=== PATIENT | female | born 1960 | race Caucasian/White ===

== ENCOUNTER 2016-08-30 14:59 | Emergency (ER) | payer MEDICAID ==
[2016-08-30 15:14] VITALS: BP 103/67
[2016-08-30] MEDS ORDERED: HYDROmorphone 1 MG/ML Syringe IM ONE (15:39)
--- NOTE | 2016-08-31 00:05 | ER ---
Date of Service: 08/30/2016 SUBJECTIVE: Joselin presents to the emergency room with complaints of lumbar sacral back pain. The patient states that she was holding a ladder for someone and was looking up and misstepped, falling backwards on to her buttocks/back. She states that she was on the grass when she fell. She does have a history of chronic low back pain and spinal stenosis and has had a referral for evaluation for possible spinal fusion. The patient states that she is not experiencing any paresthesia in her lower extremities and denies any saddle anesthesia or incontinence. PAST MEDICAL HISTORY: 1. Depression. 2. Anxiety. 3. Chronic back pain. 4. Hypertension. 5. Tobacco abuse disorder. MEDICATIONS: 1. Thiamine. 2. Lisinopril 12.5 mg p.o. daily. 3. Prozac 40 mg daily. 4. Klonopin 0.25 mg p.o. daily p.r.n. 5. Aspirin 81 mg daily. ALLERGIES: 1. Statin drugs. 2. Sulfa. REVIEW OF SYSTEMS: General: Denies any saddle anesthesia or paresthesias in her lower extremities. No incontinence. Denies any injury other than was isolated to her lower back. PHYSICAL EXAMINATION: General: This is a 55-year-old female patient, who is in no acute distress. Vital Signs: Blood pressure is 103/67, heart rate is 111, temp is 36.3, respiratory rate 16, O2 saturations 96%. Skin: Warm, pink, and dry. Lungs: Clear to auscultation. Heart: Regular rate and rhythm. Musculoskeletal. The patient does have some muscle spasms to the lumbar sacral region of her lower back. She is noted to have a transdermal back pain, patches in place. No obvious step-offs or deformity noted. No crepitus noted. Neurovascular: Circulation, sensation, and motor function all within normal limits in distal portion of her lower extremities. Her patellar reflexes are 1+. RADIOGRAPHIC DATA: Lumbar spinal x-rays were obtained. No evidence of any acute fracture or subluxation. EMERGENCY ROOM COURSE: The patient was given Dilaudid 1 mg IM. Did report significant improvement in her discomfort. She remained stable under my care in the emergency room. ASSESSMENT: Acute on chronic low back pain. PLAN: The patient will be discharged. Tylenol and ibuprofen for discomfort. I did offer her a short course of Tylenol No. 3, but she refused stating that it caused her to have gastrointestinal distress, so I stated that she could start with ibuprofen and follow up with her primary care provider if she is continuing to have problems. She was giving an extensive handout on exercises that she can do to help with her discomfort. She is advised to follow up in the clinic or return to the emergency room if she develops any saddle anesthesia, difficulties with incontinence, other worrisome signs or symptoms. All questions were answered. MWK: 08/30/2016 21:38:45 MODL: 08/30/2016 23:56:54 /[id number]
== END 2016-08-30 17:40 | disposition home or self-care (01) ==
LOC: VM.ED 14:59
DX: G89.29 Other chronic pain (principal); M54.5 Low back pain; F32.9 Major depressive disorder, single episode, unspecified; F41.9 Anxiety disorder, unspecified; I10 Essential (primary) hypertension; Z88.2 Allergy status to sulfonamides; Z88.8 Allergy status to other drugs, medicaments and biological substances
CPT/HCPCS: 72100; 96372; 99283; J1170